=== PATIENT | female | born 1960 | race African-American/Black ===

== ENCOUNTER 2016-08-19 17:13 | Inpatient (IN) | payer OTHER ==
[~2016-08-19] VITALS: Ht 170.2 cm; Wt 109.0 kg
[~2016-08-19 17:13] MED LIST: ALBU8HFA4 IH; AMIT75 PO; ASPI-1093 PO; BECL8.7A5 IH; BENZ200C45 PO; CARV6.2534 PO; DICL50TA7 PO; FERR-89 PO; FURO20 PO; METO25TA6 PO; MULT-1203 PO; OMEP20CA10 PO; OXYC-158 PO; PRED10TA3 PO; SIMV-261 PO; SLOWK8 PO; SPIR25TA4 PO
[2016-08-19 17:38] LABS: BASOPHILS % (AUTO) 0.6 % (0.0-2.0); EOSINOPHILS % (AUTO) 2.2 % (1.0-6.0); HEMATOCRIT 36.6 % (36-46); LYMPHOCYTES # (AUTO) 1.7 K/uL (1.0-4.8); LYMPHOCYTES % (AUTO) 43.5 % (22.0-44.0); MEAN CORPUSCULAR HEMOGLOBIN 32.4 pg (26.0-34.0); MEAN CORPUSCULAR HGB CONC 32.9 G/dL (31.0-37.0); MEAN CORPUSCULAR VOLUME 99 fL (80-100); MONOCYTES # (AUTO) 0.2 K/uL (0.1-1.0); MONOCYTES % (AUTO) 4.6 % (2.0-9.0); NEUTROPHILS % (AUTO) 49.1 % (40.0-70.0); PLATELET COUNT (AUTO) 199 K/uL (150-450); RED BLOOD CELL COUNT(AUTO) 3.71 MIL/uL (4.00-5.20); RED CELL DISTRIBUTION WIDTH 15.1 % (11.5-14.5)
[2016-08-19 17:48] LABS: ANION GAP 3 mmol/L (8-16); CALCIUM, TOTAL 9.3 mg/dL (8.8-10.5); CARBON DIOXIDE 29 mmol/L (22-29); CHLORIDE 105 mmol/L (98-107); CREATININE 1.01 mg/dL (0.60-1.30); GLOMERULAR FILTR. RATE CALC > 60 mL/min (>60); SODIUM SERUM 137 mmol/L (136-145); UREA NITROGEN, BLOOD 19 mg/dL (7-18)
[2016-08-19 17:50] LABS: PROTHROMBIN TIME 10.7 SEC (9.4-11.6)
[2016-08-19 18:11] LABS: B-TYPE NATRIURETIC PEPTIDE 195 pg/mL (0-100)
[2016-08-19 18:13] LABS: ALANINE AMINOTRANSFERASE 32 U/L (12-78); ALBUMIN 3.6 g/dL (3.4-5.0); ASPARTATE AMINOTRANSFERASE 16 U/L (15-37); BILIRUBIN,TOTAL 0.1 mg/dL (0.1-1.0); CREATINE KINASE MB 0.9 ng/mL (0-5); CREATINE KINASE, TOTAL 84 U/L (26-192); TOTAL PROTEIN, SERUM 7.1 g/dL (6.4-8.2)
[2016-08-19 19:27] LABS: ADD UA MICROSCOPIC YES; APPEARANCE,URINE CLOUDY (CLEAR); GLUCOSE, URINE (UA) NEGATIVE (NEGATIVE); KETONES,URINE NEGATIVE (NEGATIVE); LEUKOCYTE ESTERASE ,URINE TRACE (NEGATIVE); OCCULT BLOOD,URINE NEGATIVE (NEGATIVE); PH,URINE 5.5 (5.0-8.0); PROTEIN,URINE NEGATIVE (NEGATIVE)
[2016-08-19 19:58] LABS: RBC,URINE 0-2 /HPF (0-2)
[2016-08-19] MEDS ORDERED: ALBUTEROL SULFATE 2.5 MG/0.5 ML NEB SOLUTION NEB PRN (21:45)
[2016-08-19] MEDS ORDERED: ACETAMINOPHEN 325 MG TABLET PO PRN (21:45)
[2016-08-19] MEDS ORDERED: ZOLPIDEM TARTRATE 5 MG TABLET PO PRN (21:45)
[2016-08-19 22:30] VITALS: BP 129/83
[2016-08-19] MEDS ORDERED: -PHARMACY VACCINE NOTE- MISC ONE ×2 (23:00)
[2016-08-19 23:49] VITALS: BP 131/79
[2016-08-20 04:20] VITALS: BP 117/77
[2016-08-20 07:38] VITALS: BP 115/77
[2016-08-20] MEDS: CARVEDILOL 6.25 MG TABLET PO SCH ×2 (08:25→20:43)
[2016-08-20] MEDS: SIMVASTATIN 40 MG TABLET PO SCH (08:25)
[2016-08-20] MEDS: FUROSEMIDE 20 MG TABLET PO SCH ×2 (08:25→20:43)
[2016-08-20] MEDS: PANTOPRAZOLE SODIUM 40 MG DR TABLET PO SCH (08:25)
[2016-08-20] MEDS: ASPIRIN 81 MG EC TABLET PO SCH (08:26)
[2016-08-20] MEDS: HEPARIN SODIUM,PORCINE 5,000 UNITS/ML VIAL SQ SCH ×3 (08:26→15:51)
[2016-08-20] MEDS: FERROUS SULFATE 325 MG EC TABLET PO SCH ×4 (08:26→20:42)
[2016-08-20] MEDS: AMITRIPTYLINE HCL 75 MG TABLET PO SCH ×2 (08:26→20:42)
[2016-08-20 11:12] VITALS: BP 92/60
[2016-08-20 15:47] VITALS: BP 126/55
[2016-08-20] MEDS: OxyCODONE HCL/ACETAMINOPHEN 5-325 MG TABLET PO PRN (15:53)
[2016-08-20 19:48] VITALS: BP 105/69
[2016-08-20 23:44] VITALS: BP 128/75
[2016-08-21] MEDS: HEPARIN SODIUM,PORCINE 5,000 UNITS/ML VIAL SQ SCH ×3 (00:34→18:36)
[2016-08-21 04:39] VITALS: BP 118/77
[2016-08-21] MEDS: OxyCODONE HCL/ACETAMINOPHEN 5-325 MG TABLET PO PRN ×3 (06:08→22:10)
[2016-08-21 07:30] VITALS: BP 116/74
[2016-08-21] MEDS: CARVEDILOL 6.25 MG TABLET PO SCH (10:32)
[2016-08-21] MEDS: FUROSEMIDE 20 MG TABLET PO SCH ×2 (10:33→20:51)
[2016-08-21] MEDS: PANTOPRAZOLE SODIUM 40 MG DR TABLET PO SCH (10:33)
[2016-08-21] MEDS: SIMVASTATIN 40 MG TABLET PO SCH (10:33)
[2016-08-21] MEDS: ASPIRIN 81 MG EC TABLET PO SCH (10:33)
[2016-08-21] MEDS: FERROUS SULFATE 325 MG EC TABLET PO SCH ×4 (10:34→20:51)
[2016-08-21] MEDS ORDERED: CARV12 PO (11:11)
[2016-08-21] MEDS ORDERED: CARVEDILOL 6.25 MG TABLET PO ONE (11:15)
[2016-08-21] MEDS: AMITRIPTYLINE HCL 75 MG TABLET PO SCH ×2 (11:18→20:51)
[2016-08-21 11:23] VITALS: BP 135/75
[2016-08-21] MEDS ORDERED: MAGNESIUM HYDROXIDE SUSPENSION 30 ML UDCUP PO PRN ×2 (15:30→16:00)
[2016-08-21 16:07] VITALS: BP 124/70
[2016-08-21] MEDS ORDERED: BISACODYL 10 MG RECTAL RECTAL SUPPOSITORY PR PRN (18:00)
[2016-08-21] MEDS ORDERED: SIMETHICONE 80 MG CHEWABLE TABLET CHEW PRN (18:00)
[2016-08-21 20:40] VITALS: BP 122/78
[2016-08-21] MEDS: CARVEDILOL 12.5 MG TABLET PO SCH (20:51)
[2016-08-21] MEDS ORDERED: CARVEDILOL 12.5 MG TABLET PO SCH (21:00)
[2016-08-21] MEDS: SIMETHICONE 80 MG CHEWABLE TABLET CHEW PRN (22:09)
[2016-08-21] MEDS ORDERED: 0.9% SODIUM CHLORIDE 10 ML SYRINGE IVP PRN (23:30)
[2016-08-22] VITALS (8 sets, daily range): BP systolic 100–128; BP diastolic 52–78
[2016-08-22] MEDS: HEPARIN SODIUM,PORCINE 5,000 UNITS/ML VIAL SQ SCH ×3 (00:14→16:11)
[2016-08-22] MEDS: SIMETHICONE 80 MG CHEWABLE TABLET CHEW PRN (05:52)
[2016-08-22] MEDS: ASPIRIN 81 MG EC TABLET PO SCH (08:41)
[2016-08-22] MEDS: CARVEDILOL 12.5 MG TABLET PO SCH (08:41)
[2016-08-22] MEDS: FERROUS SULFATE 325 MG EC TABLET PO SCH ×4 (08:41→22:25)
[2016-08-22] MEDS: AMITRIPTYLINE HCL 75 MG TABLET PO SCH ×2 (08:41→22:25)
[2016-08-22] MEDS: SIMVASTATIN 40 MG TABLET PO SCH (08:41)
[2016-08-22] MEDS: PANTOPRAZOLE SODIUM 40 MG DR TABLET PO SCH (08:41)
[2016-08-22] MEDS: FUROSEMIDE 20 MG TABLET PO SCH ×2 (08:43→22:25)
[2016-08-22] MEDS: OxyCODONE HCL/ACETAMINOPHEN 5-325 MG TABLET PO PRN ×3 (09:06→17:37)
[2016-08-22] MEDS ORDERED: CARVEDILOL 12.5 MG TABLET PO ONE (13:00)
[2016-08-22] MEDS: CARVEDILOL 25 MG TABLET PO SCH (22:25)
[2016-08-23] MEDS: HEPARIN SODIUM,PORCINE 5,000 UNITS/ML VIAL SQ SCH ×3 (00:10→17:47)
[2016-08-23 04:57] VITALS: BP 98/71
[2016-08-23 07:45] VITALS: BP 88/58
[2016-08-23] MEDS: FUROSEMIDE 20 MG TABLET PO SCH (09:00)
[2016-08-23] MEDS: CARVEDILOL 25 MG TABLET PO SCH (09:00)
[2016-08-23 09:32] VITALS: BP 100/70
[2016-08-23] MEDS: ASPIRIN 81 MG EC TABLET PO SCH (09:41)
[2016-08-23] MEDS: AMITRIPTYLINE HCL 75 MG TABLET PO SCH (09:41)
[2016-08-23] MEDS: PANTOPRAZOLE SODIUM 40 MG DR TABLET PO SCH (09:41)
[2016-08-23] MEDS: SIMVASTATIN 40 MG TABLET PO SCH (09:41)
[2016-08-23] MEDS: FERROUS SULFATE 325 MG EC TABLET PO SCH ×2 (09:41→13:12)
[2016-08-23] MEDS: OxyCODONE HCL/ACETAMINOPHEN 5-325 MG TABLET PO PRN (09:50)
[2016-08-23 11:44] VITALS: BP 117/70
[2016-08-23 16:29] VITALS: BP 118/66
== END 2016-08-23 17:50 | disposition home or self-care (01) | DRG 201 ==
LOC: EMS 17:14 → 5N 21:45
PROVIDERS: ADMIT Hospitalist; ATTEND Hospitalist
DX: I47.1 Supraventricular tachycardia (principal); I11.0 Hypertensive heart disease with heart failure; I50.22 Chronic systolic (congestive) heart failure; E66.01 Morbid (severe) obesity due to excess calories; J44.9 Chronic obstructive pulmonary disease, unspecified; J45.909 Unspecified asthma, uncomplicated; G89.29 Other chronic pain; M54.9 Dorsalgia, unspecified; I25.5 Ischemic cardiomyopathy; F32.9 Major depressive disorder, single episode, unspecified; G43.909 Migraine, unspecified, not intractable, without status migrainosus; Z68.37 Body mass index [BMI] 37.0-37.9, adult; Z95.810 Presence of automatic (implantable) cardiac defibrillator; Z79.899 Other long term (current) drug therapy; Z79.82 Long term (current) use of aspirin; Z87.891 Personal history of nicotine dependence; Z91.14 Patient's other noncompliance with medication regimen
CPT/HCPCS: 87086; 93005; 99285; J1644

== ENCOUNTER 2016-10-28 15:38 | Emergency (ER) | payer OTHER ==
[~2016-10-28 15:38] MED LIST changes: -BENZ200C45 PO; +CARV12 PO; -CARV6.2534 PO; -DICL50TA7 PO; -METO25TA6 PO; -OMEP20CA10 PO; -PRED10TA3 PO; -SPIR25TA4 PO
== END 2016-10-28 17:09 | disposition left against medical advice (07) ==
LOC: EMS 15:40
DX: M54.9 Dorsalgia, unspecified (principal); Z53.21 Procedure and treatment not carried out due to patient leaving prior to being seen by health care provider

== ENCOUNTER 2016-10-31 11:15 | Emergency (ER) | payer OTHER ==
[~2016-10-31] VITALS: Ht 170.2 cm; Wt 104.5 kg
[2016-10-31 12:03] VITALS: BP 124/71
[2016-10-31] MEDS ORDERED: KETOROLAC TROMETHAMINE 60 MG/2 ML VIAL IM ONE (13:00)
[2016-10-31] MEDS ORDERED: OxyCODONE HCL/ACETAMINOPHEN 5-325 MG TABLET PO ONE (13:00)
== END 2016-10-31 13:34 | disposition home or self-care (01) ==
LOC: EMS 11:16
DX: S39.012A Strain of muscle, fascia and tendon of lower back, initial encounter (principal); G89.29 Other chronic pain; M54.9 Dorsalgia, unspecified; J45.909 Unspecified asthma, uncomplicated; J44.9 Chronic obstructive pulmonary disease, unspecified; I10 Essential (primary) hypertension; F32.9 Major depressive disorder, single episode, unspecified; G43.909 Migraine, unspecified, not intractable, without status migrainosus; I50.9 Heart failure, unspecified; Z87.891 Personal history of nicotine dependence; Z79.82 Long term (current) use of aspirin; X58.XXXA Exposure to other specified factors, initial encounter; Y93.89 Activity, other specified; Y92.9 Unspecified place or not applicable; Y99.9 Unspecified external cause status
CPT/HCPCS: 96372; 99283; J1885

== ENCOUNTER 2018-03-12 00:12 | Emergency (ER) | payer OTHER ==
[~2018-03-12] VITALS: Ht 170.2 cm; Wt 122.7 kg
[~2018-03-12 00:12] MED LIST changes: -ASPI-1093 PO; +ASPI-1182 PO
[2018-03-12] MEDS ORDERED: TraMADol HCL 50 MG TABLET PO ONE (01:45)
[2018-03-12 01:47] VITALS: BP 124/68
== END 2018-03-12 01:49 | disposition home or self-care (01) ==
LOC: EMS 00:13
DX: M54.5 Low back pain (principal); G89.29 Other chronic pain; J45.909 Unspecified asthma, uncomplicated; I11.0 Hypertensive heart disease with heart failure; I50.9 Heart failure, unspecified; G43.909 Migraine, unspecified, not intractable, without status migrainosus; J44.9 Chronic obstructive pulmonary disease, unspecified; F32.9 Major depressive disorder, single episode, unspecified; Z87.891 Personal history of nicotine dependence; Z79.82 Long term (current) use of aspirin; Z79.899 Other long term (current) drug therapy
CPT/HCPCS: 99283

== ENCOUNTER 2018-03-19 15:00 | Emergency (ER) | payer OTHER ==
[~2018-03-19] VITALS: Ht 170.2 cm; Wt 122.7 kg
[2018-03-19] MEDS: TraMADol HCL 50 MG TABLET PO ONE (16:42)
[2018-03-19] MEDS: NYSTATIN 15 GM POWDER BOTTLE TP ONE (18:04)
[2018-03-19 18:09] VITALS: BP 125/78
== END 2018-03-19 18:10 | disposition home or self-care (01) ==
LOC: EMS 15:05
DX: M54.5 Low back pain (principal); G89.29 Other chronic pain; B37.89 Other sites of candidiasis; J45.909 Unspecified asthma, uncomplicated; I11.0 Hypertensive heart disease with heart failure; I50.9 Heart failure, unspecified; J44.9 Chronic obstructive pulmonary disease, unspecified; F32.9 Major depressive disorder, single episode, unspecified; G43.909 Migraine, unspecified, not intractable, without status migrainosus; Z87.891 Personal history of nicotine dependence; Z79.82 Long term (current) use of aspirin; Z79.899 Other long term (current) drug therapy
CPT/HCPCS: 99283

== ENCOUNTER 2018-03-25 00:54 | Emergency (ER) | payer OTHER ==
[~2018-03-25] VITALS: Ht 170.2 cm; Wt 122.7 kg
[2018-03-25] MEDS ORDERED: OxyCODONE HCL/ACETAMINOPHEN 5-325 MG TABLET PO ONE (02:30)
[2018-03-25 03:56] VITALS: BP 119/60
== END 2018-03-25 03:56 | disposition home or self-care (01) ==
LOC: EMS 00:55
DX: M54.5 Low back pain (principal); G89.29 Other chronic pain; J45.909 Unspecified asthma, uncomplicated; I11.0 Hypertensive heart disease with heart failure; I50.9 Heart failure, unspecified; J44.9 Chronic obstructive pulmonary disease, unspecified; G43.909 Migraine, unspecified, not intractable, without status migrainosus; F32.9 Major depressive disorder, single episode, unspecified; Z87.891 Personal history of nicotine dependence; Z79.82 Long term (current) use of aspirin; Z79.899 Other long term (current) drug therapy
CPT/HCPCS: 99283

== ENCOUNTER 2018-04-30 23:38 | Emergency (ER) | payer OTHER ==
[~2018-04-30] VITALS: Ht 170.2 cm; Wt 127.0 kg
[2018-04-30 23:46] VITALS: BP 121/61
== END 2018-05-01 02:32 | disposition left against medical advice (07) ==
LOC: EMS 23:38
DX: Z76.0 Encounter for issue of repeat prescription (principal); J45.909 Unspecified asthma, uncomplicated; I11.0 Hypertensive heart disease with heart failure; I50.9 Heart failure, unspecified; J44.9 Chronic obstructive pulmonary disease, unspecified; G43.909 Migraine, unspecified, not intractable, without status migrainosus; G89.29 Other chronic pain; F32.9 Major depressive disorder, single episode, unspecified; Z87.891 Personal history of nicotine dependence; Z53.21 Procedure and treatment not carried out due to patient leaving prior to being seen by health care provider

== ENCOUNTER 2018-05-01 08:13 | Emergency (ER) | payer OTHER ==
[~2018-05-01] VITALS: Ht 170.2 cm; Wt 127.3 kg
[2018-05-01 09:43] VITALS: BP 155/77
[2018-05-01] MEDS ORDERED: ALBUTEROL SULFATE HFA 90 MCG/PUFF 8 GM INHALER IH ONE (10:15)
== END 2018-05-01 10:39 | disposition home or self-care (01) ==
LOC: EMS 08:15
DX: R06.00 Dyspnea, unspecified (principal); L98.499 Non-pressure chronic ulcer of skin of other sites with unspecified severity; M54.9 Dorsalgia, unspecified; N61.1 Abscess of the breast and nipple; J45.909 Unspecified asthma, uncomplicated; I11.0 Hypertensive heart disease with heart failure; I50.9 Heart failure, unspecified; J44.9 Chronic obstructive pulmonary disease, unspecified; G43.909 Migraine, unspecified, not intractable, without status migrainosus; G89.29 Other chronic pain; Z87.891 Personal history of nicotine dependence; Z79.82 Long term (current) use of aspirin
CPT/HCPCS: 94640; 99283; J3535

== ENCOUNTER 2022-03-15 05:14 | Inpatient (IN) | payer OTHER ==
[~2022-03-15] VITALS: Ht 180.3 cm; Wt 134.0 kg
[~2022-03-15 05:14] MED LIST changes: -AMIT75 PO; +AMIT75TA55 PO; -ASPI-1182 PO; +ASPI-1444 PO; -FERR-89 PO; +FERR325T27 PO; +POTA8TAB71 PO; -SLOWK8 PO
[2022-03-15] MEDS ORDERED: 0.9% SODIUM CHLORIDE 10 ML SYRINGE IVP PRN (05:30)
[2022-03-15] MEDS ORDERED: SODIUM CHLORIDE 0.9% 3,000 ML IV ONE (05:30)
[2022-03-15] MEDS ORDERED: ACETAMINOPHEN 1000 MG/ISO-OSM 100 ML IV ONE (05:45)
[2022-03-15] MEDS ORDERED: PIPERACILLIN/TAZO 3.375 GM/D5W 50 ML IV ONE (06:00)
[2022-03-15] MEDS ORDERED: VANCOMYCIN 1GM/WATER(PEG/NADA) 200 ML IV ONE (06:00)
[2022-03-15 06:04] LABS: EOSINOPHILS % (AUTO) 0.7 % (1.0-6.0); HEMATOCRIT 35.1 % (36-46); HEMOGLOBIN 11.8 g/dL (12.0-16.0); LYMPHOCYTES # (AUTO) 2.1 K/uL (1.0-4.8); LYMPHOCYTES % (AUTO) 51.4 % (22.0-44.0); MEAN CORPUSCULAR HEMOGLOBIN 32.9 pg (26.0-34.0); MEAN CORPUSCULAR HGB CONC 33.5 G/dL (31.0-37.0); MEAN CORPUSCULAR VOLUME 98 fL (80-100); MONOCYTES # (AUTO) 0.1 K/uL (0.1-1.0); MONOCYTES % (AUTO) 3.2 % (2.0-9.0); NEUTROPHILS # (AUTO) 1.8 K/uL (1.8-7.7); NEUTROPHILS % (AUTO) 43.7 % (40.0-70.0); PLATELET COUNT (AUTO) 126 K/uL (150-450); RED BLOOD CELL COUNT(AUTO) 3.58 MIL/uL (4.00-5.20); RED CELL DISTRIBUTION WIDTH 14.4 % (11.5-14.5)
[2022-03-15 06:06] LABS: ANION GAP 11 mmol/L (8-16); CALCIUM, TOTAL 8.7 mg/dL (8.8-10.5); CARBON DIOXIDE 26 mmol/L (22-29); CHLORIDE 97 mmol/L (98-107); CREATININE 2.12 mg/dL (0.60-1.30); GLUCOSE,RANDOM 197 mg/dL (70-110); POTASSIUM 3.7 mmol/L (3.5-5.1); SODIUM SERUM 134 mmol/L (136-145); UREA NITROGEN, BLOOD 9 mg/dL (7-18)
[2022-03-15] MEDS ORDERED: VANCOMYCIN HCL 1 GM/D5% WATER 200 ML IV ONE (06:15)
[2022-03-15 06:19] LABS: GLOMERULAR FILTR. RATE CALC 29 mL/min (>60); LACTIC ACID 2.9 mmol/L (0.4-2.0)
[2022-03-15] MEDS ORDERED: ROCURONIUM BROMIDE 10 MG/ML 5 ML VIAL IVP ONE (06:30)
[2022-03-15 06:31] LABS: ALANINE AMINOTRANSFERASE 51 U/L (12-78); ALBUMIN 3.5 g/dL (3.4-5.0); ALKALINE PHOSPHATASE 63 U/L (46-116); ASPARTATE AMINOTRANSFERASE 32 U/L (15-37); BILIRUBIN,TOTAL 0.5 mg/dL (0.1-1.0); CREATINE KINASE, TOTAL ONLY 202 U/L (26-192); TOTAL PROTEIN, SERUM 7.2 g/dL (6.4-8.2)
[2022-03-15] MEDS ORDERED: ETOMIDATE 2 MG/ML 10 ML VIAL IVP ONE (06:45)
[2022-03-15 07:05] LABS: COVID AG,FIA SOURCE NASOPHARYNGEAL
[2022-03-15 07:14] LABS: APPEARANCE,URINE CLEAR (CLEAR); BILIRUBIN,URINE NEGATIVE (NEGATIVE); GLUCOSE, URINE (UA) NEGATIVE (NEGATIVE); KETONES,URINE TRACE mg/dL (NEGATIVE); LEUKOCYTE ESTERASE ,URINE NEGATIVE (NEGATIVE); NITRATE,URINE NEGATIVE (NEGATIVE); OCCULT BLOOD,URINE NEGATIVE (NEGATIVE); PH,URINE 6.5 (5.0-8.0); PROTEIN,URINE 30-70 mg/dL (NEGATIVE); SPECIFIC GRAVITIY, URINE 1.008 (1.003-1.030); UROBILINOGEN,URINE <=1.0 mg/dL (<=1.0)
[2022-03-15 07:15] LABS: B-TYPE NATRIURETIC PEPTIDE 515 pg/mL (0-100)
[2022-03-15 07:18] LABS: D-DIMER 4.54 mg/L FEU (0.00-0.50); INR 1.1 (0.9-1.1); PROTHROMBIN TIME 12.1 SEC (9.4-11.6)
[2022-03-15 07:18] LABS: BACTERIA,URINE None Seen /HPF (None Seen); RBC,URINE None Seen /HPF (0-2); SQUAMOUS EPITHELIAL CELL,UR Few /LPF (None Seen); WBC,URINE None Seen /HPF (0-5)
[2022-03-15] MEDS: NOREPINEPHRINE 8 MG/D5%-WATER 250 ML IV PRN ×2 (07:25→15:03)
[2022-03-15 07:59] LABS: ABG CARBOXYHEMOGLOBIN 0.3 % (0.0-1.5); SOURCE, BLOOD GAS ARTERIAL; TEMPERATURE, FAHRENHEIT, BG 104.4 FAHREN (96.0-98.6)
[2022-03-15 08:15] LABS: ABG BASE EXCESS -7.1 mmol/L (-2.0-3.0); ABG HCO3 18.9 mmol/L (22.0-26.0); ABG METHEMOGLOBIN 0.7 % (0.0-1.5); ABG OXYGEN CONTENT 17.6 mL/dL (15.0-23.0); ABG OXYGEN SATURATION 99.4 % (95.0-98.0); ABG OXYHEMOGLOBIN 98.4 % (94.0-100.0); ABG PCO2 50 mmHg (35-45); ABG PH 7.232 (7.35-7.450); ABG TOTAL HEMOGLOBIN 12.1 G/dL (12.0-18.0); PO2, ARTERIAL BG 359.3 mmHg (79.0-87.0)
[2022-03-15 08:20] LABS: ABG A-A DIFF O2 294.9 mmHg (10-20.0); SITE, BLOOD GAS LFT RADIAL
[2022-03-15 08:21] LABS: O2 DEVICE,BLOOD GAS VENTILATOR (ROOM AIR); PEEP,BG 5 cm H2O; SPONTANEOUS VT, BG 463 ml; VT, ABG 450 ml
[2022-03-15] MEDS ORDERED: NITR-75 PO (08:21)
[2022-03-15] MEDS ORDERED: PREG50 PO (08:21)
[2022-03-15] MEDS ORDERED: BUSP10TA23 PO (08:21)
[2022-03-15] MEDS ORDERED: ACETAMINOPHEN 325 MG TABLET PO PRN ×2 (08:30→09:15)
[2022-03-15] MEDS ORDERED: ONDANSETRON HCL 4 MG/2 ML VIAL IVP PRN ×2 (08:30→09:15)
[2022-03-15 08:40] LABS: INFLUENZA TYPE A NEGATIVE FOR TYPE A (NEGATIVE); INFLUENZA TYPE B NEGATIVE FOR TYPE B (NEGATIVE)
[2022-03-15] MEDS ORDERED: ACETAMINOPHEN 1000 MG/ISO-OSM 100 ML IV PRN (08:45)
[2022-03-15] MEDS ORDERED: PHENYLEPHRINE 200 MG/D5%-WATER 250 ML IV PRN (09:00)
[2022-03-15] MEDS ORDERED: HYDROCODONE/ACETAMINOPHEN 5-325 MG TABLET PO PRN (09:15)
[2022-03-15] MEDS ORDERED: MAGNESIUM HYDROXIDE SUSPENSION 30 ML UDCUP PO PRN (09:15)
[2022-03-15] MEDS ORDERED: MORPHINE SULFATE 2 MG/ML SYRINGE IVP PRN (09:15)
[2022-03-15] MEDS ORDERED: SODIUM CHLORIDE 0.9% 1,000 ML IV ONE (09:15)
[2022-03-15] MEDS ORDERED: BISACODYL 10 MG RECTAL RECTAL SUPPOSITORY PR PRN (09:15)
[2022-03-15] MEDS ORDERED: ZOLPIDEM TARTRATE 5 MG TABLET PO PRN (09:15)
[2022-03-15] MEDS ORDERED: FentaNYL CIT 1000MCG/0.9% NACL 100 ML IV PRN (10:45)
[2022-03-15] MEDS ORDERED: PROPOFOL 1000 MG/ISO-OSM 100 ML IV PRN (10:45)
[2022-03-15] MEDS ORDERED: VASOPRESSIN 40 UNITS in DEXTROSE 5%-WATER 98 ML IV PRN (11:15)
[2022-03-15] MEDS ORDERED: LISI10TA24 PO (11:22)
[2022-03-15] MEDS ORDERED: TRIA15CR49 TP (11:22)
[2022-03-15] MEDS ORDERED: DULO20CA71 PO (11:22)
[2022-03-15] MEDS ORDERED: HYDR-4061 PO (11:22)
[2022-03-15] MEDS ORDERED: ALBU8HFA IH (11:22)
[2022-03-15] MEDS ORDERED: DICL100G31 TP (11:22)
[2022-03-15] MEDS ORDERED: FURO40 PO (11:22)
[2022-03-15] MEDS ORDERED: BECL10.62 IH (11:22)
[2022-03-15] MEDS ORDERED: DANTROLENE SODIUM IVP ONE ×2 (11:30→12:30)
[2022-03-15] MEDS ORDERED: SODIUM CHLORIDE 0.9% 500 ML IV ONE ×2 (11:48→19:38)
[2022-03-15] MEDS ORDERED: PIPERACILLIN/TAZO 3.375 GM/D5W 50 ML IV SCH (12:00)
[2022-03-15 12:18] LABS: ABG BASE EXCESS -6.4 mmol/L (-2.0-3.0); ABG CARBOXYHEMOGLOBIN 0.3 % (0.0-1.5); ABG HCO3 19.6 mmol/L (22.0-26.0); ABG METHEMOGLOBIN 0.6 % (0.0-1.5); ABG OXYGEN CONTENT 18.5 mL/dL (15.0-23.0); ABG OXYGEN SATURATION 98.9 % (95.0-98.0); ABG PCO2 48 mmHg (35-45); ABG PH 7.255 (7.35-7.450); ABG TOTAL HEMOGLOBIN 13.2 G/dL (12.0-18.0); PO2, ARTERIAL BG 191.5 mmHg (79.0-87.0); SOURCE, BLOOD GAS ARTERIAL; TEMPERATURE, FAHRENHEIT, BG 103.7 FAHREN (96.0-98.6)
[2022-03-15 12:20] LABS: O2 DEVICE,BLOOD GAS VENTILATOR (ROOM AIR); PEEP,BG 5 cm H2O; SITE, BLOOD GAS ARTERIAL LINE; SPONTANEOUS VT, BG 492 ml; VT, ABG 450 ml
[2022-03-15 12:21] LABS: ABG A-A DIFF O2 250.4 mmHg (10-20.0)
[2022-03-15] MEDS ORDERED: *CLINICAL-MEROPENEM DOSING CLINICAL ONE (12:30)
[2022-03-15] MEDS ORDERED: MEROPENEM 1 GM in SODIUM CHLORIDE 0.9% 100 ML IV SCH (13:00)
[2022-03-15] MEDS ORDERED: DOPamine 400MG/D5W[STANDARD] 250 ML IV PRN (13:30)
[2022-03-15] MEDS: EPINEPHrine 2 MG in DEXTROSE 5%-WATER 248 ML IV PRN ×3 (14:25→17:25)
[2022-03-15 16:00] VITALS: BP 53/30
[2022-03-15] MEDS ORDERED: HEPARIN SODIUM,PORCINE 5,000 UNITS/ML VIAL SQ SCH (16:00)
[2022-03-15 17:25] VITALS: BP 47/27
[2022-03-15 19:05] LABS: HEMATOCRIT 22.1 % (36-46); HEMOGLOBIN 7.2 g/dL (12.0-16.0); MEAN CORPUSCULAR HEMOGLOBIN 32.7 pg (26.0-34.0); MEAN CORPUSCULAR HGB CONC 32.6 G/dL (31.0-37.0); MEAN CORPUSCULAR VOLUME 100 fL (80-100); PLATELET COUNT (AUTO) 37 K/uL (150-450); RED BLOOD CELL COUNT(AUTO) 2.21 MIL/uL (4.00-5.20); RED CELL DISTRIBUTION WIDTH 15.8 % (11.5-14.5)
[2022-03-15 19:16] LABS: CREATININE 4.03 mg/dL (0.60-1.30); MAGNESIUM 1.5 mg/dL (1.80-2.40); PHOSPHORUS 3.9 mg/dL (2.5-4.9); POTASSIUM 4.3 mmol/L (3.5-5.1)
[2022-03-15 19:27] LABS: CALCIUM, TOTAL 5.7 mg/dL (8.8-10.5)
[2022-03-15] MEDS ORDERED: CALCIUM CHLORIDE 100 MG/ML 10 ML SYRINGE IVP ONE (20:28)
[2022-03-15] MEDS ORDERED: SODIUM BICARBONATE [ADULT] 8.4% 50 MEQ/50 ML SYRINGE IVP ONE (20:28)
[2022-03-15] MEDS ORDERED: ETOMIDATE 2 MG/ML 10 ML VIAL IV ONE (20:28)
[2022-03-15] MEDS ORDERED: LIDOCAINE/PF 2% 5 ML SYRINGE IVP ONE (20:28)
[2022-03-15] MEDS ORDERED: EPINEPHrine 1:10,000 [1 MG/10 ML] SYRINGE IVP ONE (20:28)
[2022-03-15] MEDS ORDERED: DOCUSATE SODIUM 100 MG CAPSULE PO SCH (21:00)
[2022-03-16] MEDS ORDERED: PANTOPRAZOLE SODIUM 40 MG DR TABLET PO SCH (09:00)
[2022-03-16 14:45] LABS: PATHOLOGY REVIEW, DIFF YES
[2022-03-17 16:45] LABS: SEGMENTED NEUTROPHILS % 47 % (40-70)
[2022-03-17 16:46] LABS: BAND NEUTROPHILS % (MANUAL) 1 % (0-5); BLASTS, MANUAL % 1 (0-0); CORRECTED WHITE BLOOD COUNT 11.1 K/uL (4.5-11.0); LYMPHOCYTES % (MANUAL) 41 % (22-44); METAMYELOCYTES % 2 % (0-0); MONOCYTES % (MANUAL) 8 % (2-9)
== END 2022-03-15 20:29 | DRG 720 ==
LOC: EMS 05:15 → ICU 12:28
PROVIDERS: ADMIT Internal Medicine; ATTEND Internal Medicine
PROC: 5A1935Z Respiratory Ventilation, Less than 24 Consecutive Hours (ICD-10-PCS; principal; 2022-03-15)
PROC: 0BH17EZ Insertion of Endotracheal Airway into Trachea, Via Natural or Artificial Opening (ICD-10-PCS; 2022-03-15)
PROC: 06HY33Z Insertion of Infusion Device into Lower Vein, Percutaneous Approach (ICD-10-PCS; 2022-03-15)
PROC: B54CZZA Ultrasonography of Left Lower Extremity Veins, Guidance (ICD-10-PCS; 2022-03-15)
PROC: 04HY32Z Insertion of Monitoring Device into Lower Artery, Percutaneous Approach (ICD-10-PCS; 2022-03-15)
DX: A41.9 Sepsis, unspecified organism (principal); D65 Disseminated intravascular coagulation [defibrination syndrome]; I46.9 Cardiac arrest, cause unspecified; J96.01 Acute respiratory failure with hypoxia; G93.41 Metabolic encephalopathy; E87.2 Acidosis; D61.818 Other pancytopenia; Z20.822 Contact with and (suspected) exposure to COVID-19; Z66 Do not resuscitate; N17.9 Acute kidney failure, unspecified; F99 Mental disorder, not otherwise specified; E66.01 Morbid (severe) obesity due to excess calories; Z68.41 Body mass index [BMI] 40.0-44.9, adult; E78.5 Hyperlipidemia, unspecified; I13.0 Hypertensive heart and chronic kidney disease with heart failure and stage 1 through stage 4 chronic kidney disease, or unspecified chronic kidney disease; I42.0 Dilated cardiomyopathy; I50.22 Chronic systolic (congestive) heart failure; J44.9 Chronic obstructive pulmonary disease, unspecified; N18.30 Chronic kidney disease, stage 3 unspecified; R65.21 Severe sepsis with septic shock; Z87.891 Personal history of nicotine dependence; Z95.810 Presence of automatic (implantable) cardiac defibrillator; G43.909 Migraine, unspecified, not intractable, without status migrainosus; F32.A Depression, unspecified; G89.29 Other chronic pain
CPT/HCPCS: 31500; 36600; 51702; 71045; 80048; 80053; 81001; 82550; 82805; 83605; 83735; 83880; 84100; 84484; 85025; 85379; 85610; 85730; 87040; 87804; 93005; 93306; 94002; 99291; G0378; J0131; J0171; J1265; J2185; J2370; J2543; J2704; J3370; J3490; J7040; J7050; J7060; Q9967; 36415-L1; 36415-TC